=== PATIENT | male | born 1985 | race Caucasian/White ===

== ENCOUNTER 2022-02-28 22:51 | Emergency (ER) | payer OTHER ==
[~2022-02-28] VITALS: Ht 190.5 cm; Wt 100.0 kg
[2022-02-28 23:00] VITALS: BP 138/87
--- NOTE | 2022-02-28 23:25 | PHYS DOC ---
Past History Additional Past Medical Histor: spontaneous pneumothorax Past Surgical History: Other Additional Past Surgical Histo: thoractomy Alcohol Use: None General Adult EDM: Chief Complaint: ABDOMINAL PAIN HPI: HPI: 36-year-old male presents with left lower quadrant abdominal pain. Patient was defecating when he had sudden onset of left lower quadrant abdominal pain which radiates around to his back. He describes it as a sharp pain. He was feeling n ormal prior to this episode. Patient has had a kidney stone in the past. He has been nauseated but no vomiting. Denies fever or chills. Review of Systems: Review of Systems: Constitutional: Denies fever or chills Eyes: Denies change in visual acuity HENT: Denies nasal congestion or sore throat Respiratory: Denies cough or shortness of breath Cardiovascular: Denies chest pain or edema GI: Left lower quadrant abdominal pain, nausea. : Denies dysuria Musculoskeletal: Denies back pain or joint pain Integument: Denies rash Neurologic: Denies headache, focal weakness or sensory changes Endocrine: Denies polyuria or polydipsia Lymphatic: Denies swollen glands Psychiatric: Denies depression or anxiety Current Medications: Current Meds: Current Medications Medications (Trade) Dose Ordered Sig/Shanel Start Time Stop Time Status Last Admin Dose Admin Morphine Sulfate (Morphine 4mg Syringe) 4 mg 1X ONCE 02/28/22 23:30 02/28/22 23:31 02/28/22 23:19 4 MG Ondansetron HCl (Zofran) 4 mg 1X ONCE 02/28/22 23:30 02/28/22 23:31 02/28/22 23:19 4 MG Allergies: Allergies: Allergies Coded Allergies Type Severity Reaction Last Updated Verified No Known Drug Allergies 02/28/22 No Physical Exam: PE: Constitutional: Well developed, well nourished, mild acute distress, non-toxic appearance. [] HENT: Normocephalic, atraumatic, bilateral external ears normal, oropharynx moist, no oral exudates, nose normal. [] Eyes: PERRLA, EOMI, conjunctiva normal, no discharge. [] Neck: Normal range of motion, no tenderness, supple, no stridor. [] Cardiovascular:Heart rate regular rhythm, no murmur [] Lungs & Thorax: Bilateral breath sounds clear to auscultation [] Abdomen: Bowel sounds normal, soft, no tenderness, no masses, no pulsatile masses. [] Skin: Warm, dry, no erythema, no rash. [] Back: No tenderness, left CVA tenderness. [] Extremities: No tenderness, no cyanosis, no clubbing, ROM intact, no edema. [] Neurologic: Alert and oriented X 3, normal motor function, normal sensory function, no focal deficits noted. [] Psychologic: Affect normal, judgement normal, mood normal. [] Current Patient Data: Vital Signs: Vital Signs Date Time Temp Pulse Resp B/P (MAP) Pulse Ox O2 Delivery O2 Flow Rate FiO2 02/28/22 23:00 98.4 88 24 138/87 (104) 100 Room Air EKG: EKG: [] Radiology/Procedures: Radiology/Procedures: [] Impressions: PQRS Compliance Statement: One or more of the following individualized dose reduction techniques were utilized for this examination: 1. Automated exposure control 2. Adjustment of the mA and/or kV according to patient size 3. Use of iterative reconstruction technique CT ABDOMEN+PELVIS WO Clinical Indication: Reason: LLQ pain / Spl. Instructions: / History: Comparison: None. Technique: Helical CT imaging of the abdomen and pelvis is performed without IV or oral contrast. Findings: Lung bases are essentially clear. Cardiac size normal. The liver, gallbladder, spleen, pancreas, adrenal glands, and abdominal aorta are normal. The right kidney is normal. There is no left renal calculus. There is mild left hydroureteronephrosis secondary to a 5 mm calculus in the proximal right ureter, the length of the calculus is 12 mm, coronal image 51. The more distal left ureter is decompressed. The stomach is mildly distended with heterogeneous fluid. Correlate to recent by mouth intake. There is a tiny fat-containing umbilical hernia. There is no small bowel obstruction. The appendix is normal. There is probable peristalsis of the mid transverse colon. Distal colon is decompressed, limiting evaluation. No convincing colon wall thickening is identified. There is no abdominal adenopathy or free fluid. The urinary bladder is normal. Prostate and seminal vesicles are normal. There is no pelvic free fluid. There is no acute bone abnormality. IMPRESSION: There is mild left obstructive uropathy secondary to a 5 x 12 mm calculus in the proximal ureter. Electronically signed by: Taj Adams MD (02/28/2022 11:57 PM) [facility] [place] DICTATED AND SIGNED BY: TAJ ADAMS MD DATE: 02/28/22 3030 CC: ASAD ALFARO DO; PCP,NO ~ Heart Score: C/O Chest Pain: N/A Risk Factors: Risk Factors: DM, Current or recent (<one month) smoker, HTN, HLP, family history of CAD, obesity. Risk Scores: Score 0 - 3: 2.5% MACE over next 6 weeks - Discharge Home Score 4 - 6: 20.3% MACE over next 6 weeks - Admit for Clinical Observation Score 7 - 10: 72.7% MACE over next 6 weeks - Early Invasive Strategies Course & Med Decision Making: Course & Med Decision Making Pertinent Labs and Imaging studies reviewed. (See chart for details) The patient CT of the abdomen and pelvis reveals a proximal 5 x 12 calculus in the proximal ureter. This is unlikely to pass. I have advised that he follow- up with urologist tomorrow. The patient's urinalysis is negative for infection. His labs are unremarkable. I will discharge him with a prescription for [place] and Flomax. He is stable for discharge at this time. [] Dragon Disclaimer: Dragon Disclaimer: This electronic medical record was generated, in whole or in part, using a voice recognition dictation system. Departure Departure: Impression: Primary Impression: Kidney stone Disposition: HOME / SELF CARE / HOMELESS Condition: STABLE Referrals: PCP,FRANCY (PCP) Patient Instructions: Kidney Stones, [id number] Scripts Tamsulosin Hcl (FLOMAX) 0.4 Mg Cap.er.24h 1 CAP PO DAILY for ureterolithiasis for 14 Days, #14 CAP 0 Refills Prov: ASAD ALFARO DO 03/01/22 Hydrocodone/Acetaminophen (Hydrocodone-Acetamin 5-325 mg) 1 Each Tablet 1-2 EACH PO Q6HRS PRN for PAIN, #20 TAB Prov: ASAD ALFARO DO 03/01/22 ASAD ALFARO DO February 28, 2022 23:24
[2022-02-28 23:26] LABS: BASO # 0.1 x10^3/uL (0.0-0.2); BASO % 1 % (0-3); EOS # 0.2 x10^3/uL (0.0-0.7); EOS % 2 % (0-3); HEMATOCRIT 42.6 % (39.0-53.0); HEMOGLOBIN 14.5 g/dL (13.0-17.5); LYMPH # 3.3 x10^3/uL (1.0-4.8); LYMPH % 35 % (24-48); MEAN CORPUSCULAR HEMOGLOBIN 31 pg (25-35); MEAN CORPUSCULAR HGB CONC 34 g/dL (31-37); MEAN CORPUSCULAR VOLUME 91 fL (79-100); MONO # 0.9 x10^3/uL (0.0-1.1); MONO % 10 % (0-9); NEUT % 53 % (31-73); PLATELET COUNT 209 x10^3/uL (140-400); RED BLOOD COUNT 4.68 x10^6/uL (4.30-5.70); RED CELL DISTRIBUTION WIDTH 12.8 % (11.5-14.5); WHITE BLOOD COUNT 9.5 x10^3/uL (4.0-11.0)
[2022-02-28] MEDS ORDERED: ONDANSETRON PF 4 MG/2 ML VIAL. IVP ONE (23:30)
[2022-02-28] MEDS ORDERED: MORPHINE SULFATE 4 MG/ML DISP.SYRIN. IV ONE (23:30)
[2022-02-28 23:48] LABS: ALBUMIN/GLOBULIN RATIO 1.3 (1.0-1.7); CALCIUM 9.4 mg/dL (8.5-10.1); CREATININE 1.2 mg/dL (0.7-1.3); GFR 67.8; TOTAL BILIRUBIN 0.5 mg/dL (0.2-1.0); TOTAL PROTEIN 7.2 g/dL (6.4-8.2)
--- NOTE | 2022-02-28 23:59 | RAD ---
PQRS Compliance Statement: One or more of the following individualized dose reduction techniques were utilized for this examinat ion: 1. Automated exposure control 2. Adjustment of the mA and/or kV according to patient size 3. Use of iterative reconstruction technique CT ABDOMEN+PELVIS WO Clinical Indication: Reason: LLQ pain / Spl. Instructions: / History: Comparison: None. Technique: Helical CT imaging of the abdomen and pelvis is performed without IV or oral contrast. Findings: Lung bases are essentially clear. Cardiac size normal. The liver, gallbladder, spleen, pancreas, adrenal glands, and abdominal aorta are normal. The right kidney is normal. There is no left renal calculus. There is mild left hydroureteronephrosis secondary to a 5 mm calculus in the proximal right ureter, the length of the calculus is 12 mm, kiara nal image 51. The more distal left ureter is decompressed. The stomach is mildly distended with heterogeneous fluid. Correlate to recent by mouth intake. There is a tiny fat-containing umbilical hernia. There is no small bowel obstruction. The appendix is madi l. There is probable peristalsis of the mid transverse colon. Distal colon is decompressed, limiting evaluation. No convincing colon wall thickening is identified. There is no abdominal adenopathy or fr ee fluid. The urinary bladder is normal. Prostate and seminal vesicles are normal. There is no pelvic free flui d. There is no acute bone abnormality. IMPRESSION: There is mild left obstructive uropathy secondary to a 5 x 12 mm calculus in the proximal ureter. Electronically signed by: Taj Griffin MD (02/28/2022 11:57 PM) [facility]
[2022-03-01] MEDS ORDERED: IV NORMAL SALINE 1,000ML 1,000 ML IV ONE (00:30)
[2022-03-01 01:29] LABS: BARBITURATES NEG (NEG); BENZODIAZEPINES NEG (NEG); CANNABINOIDS NEG (NEG); COCAINE NEG (NEG); METHADONE NEG (NEG); OPIATES POS (NEG); PHENCYCLIDINE NEG (NEG)
[2022-03-01 01:31] LABS: AMPHETAMINE/METHAMPHETAMINE NEG (NEG)
[2022-03-01 01:35] LABS: CLARITY,URINE CLEAR; COLOR,URINE YELLOW; GLUCOSE,URINE NEG (NEG)
[2022-03-01 01:36] LABS: BACTERIA,URINE FEW /HPF (0-FEW); NITRITE,URINE NEG (NEG)
[2022-03-01 01:37] LABS: SQUAMOUS EPITHELIAL CELL,UR FEW /LPF
[2022-03-01] MEDS ORDERED: HYDR-2759 PO (01:46)
[2022-03-01] MEDS ORDERED: TAMS0.4C97 PO (01:46)
== END 2022-03-01 01:54 | disposition home or self-care (01) ==
LOC: ER 22:51
DX: N13.2 Hydronephrosis with renal and ureteral calculous obstruction (principal)
CPT/HCPCS: 36415; 74176; 80053; 80307; 81001; 85025; 87086; 96361; 96374; 96375; 99284; J2270; J2405; J7030

== ENCOUNTER 2022-03-05 09:36 | Emergency (ER) | payer OTHER ==
[~2022-03-05] VITALS: Ht 190.5 cm; Wt 98.8 kg
[~2022-03-05 09:36] MED LIST: HYDR-2759 PO; TAMS0.4C97 PO
--- NOTE | 2022-03-05 09:44 | PHYS DOC ---
Past History Additional Past Medical Histor: spontaneous pneumothorax Past Surgical History: Other Additional Past Surgical Histo: thoractomy Alcohol Use: None General Adult HPI: HPI: Patient is a 36-year-old male who is here with left flank pain and nausea and vomiting symptoms. He was recently diagnosed with a very large left ureteral stone. Yesterday he underwent lithotripsy with [facility]. He is taking [place] for pain, but he vomited all of his pain medication and he was not able to keep any fluids or food down since last night and this morning. He is able to urinate. He denies painful urination. He denies chest pain, cough, dyspnea. He denies fevers or chills. He denies bowel habit changes. He has had 1 previous kidney stone on the right side, he was able to pass that without difficulty. He was not prescribed any antiemetics. He contacted the on-call urologist who told him to go to the closest ER. Of note, [facility], and urology in general is not available here at this hospital. Review of Systems: Review of Systems: Constitutional: Denies fever or chills HENT: Denies nasal congestion or sore throat Respiratory: Denies cough or shortness of breath Cardiovascular: Denies chest pain or edema GI: Left flank pain. Denies anterior abdominal pain. Nausea and vomiting. Denies bowel habit changes : Denies dysuria or decreased urine output Musculoskeletal: Left flank pain Integument: Petechial rash to the left flank Neurologic: Denies headache, focal weakness or sensory changes, denies dizziness or syncope Psychiatric: Denies depression or anxiety Allergies: Allergies: Allergies Coded Allergies Type Severity Reaction Last Updated Verified No Known Drug Allergies 02/28/22 No Physical Exam: PE: Constitutional: Well developed, well nourished, no acute distress, non-toxic appearance. [] HENT: Normocephalic, atraumatic, oropharynx is patent and clear. No facial swelling. Mucous members are moist. Subtle cutaneous petechial hemorrhages of the skin just lateral to the left eye. Eyes: PERRL, EOMI, conjunctiva normal, no discharge. No subconjunctival hemorrhage. Neck: Normal range of motion, no tenderness, supple, no stridor. [] Cardiovascular:Heart rate regular rhythm Lungs & Thorax: Bilateral breath sounds clear to auscultation [] Abdomen: Abdomen is soft, nondistended, nontender to palpation. Subtle petechial hemorrhage of the cutaneous tissue of the left flank. Normal bowel sounds. Left CVA tenderness. No palpable pulsatile mass. No audible bruit. Normal bowel sounds. Skin: Warm, dry, no erythema, no jaundice. Back: Left CVA tenderness. No midline tenderness or step-offs. Full range of motion. Extremities: No tenderness, no cyanosis, no clubbing, ROM intact, no edema. [] Neurologic: Alert and oriented X 3, normal motor function, normal sensory function, no focal deficits noted. [] Psychologic: Affect normal, judgement normal, mood normal. He is pleasant and cooperative. EKG: EKG: [] Radiology/Procedures: Radiology/Procedures: IMAGING REPORT Signed PATIENT: MOMO VINCENT AACCOUNT: [id number] : 1985 LOCATION: ER AGE: 36 SEX: M EXAM STATUS: REG ER ORD. PHYSICIAN: CAMI LOMBARDO DO REASON: left flank pain, hx of stone, recent lithotripsy PROCEDURE: CT ABDOMEN PELVIS WO CONTRAST Abdominal and Pelvis CT, Without Contrast: History: Reason: left flank pain, hx of stone, recent lithotripsy / Spl. Instructions: / History: Comparison: February 28, 2022. Procedure: Axial images are obtained of the abdomen and pelvis, without IV or oral contrast. Oral Contrast: No Findings: Evaluation of solid organs is limited without contrast. The 1.3 cm stone which was in the proximal left ureter is now in the distal left ureter. There is mild left hydroureter and hydronephrosis and perinephric edema. There is a tiny 1 mm stone in the mid left ureter and there are 2 tiny stones in the distal left ureter just above the large stone. The appendix is normal. Liver: Normal. Spleen: Normal. Pancreas: Normal. Adrenal Glands: Normal. Kidneys: The right kidney appears normal. There is no free air or free fluid. There is no lymphadenopathy. The urinary bladder appears normal. There is no pericolonic inflammation identified. Impression: Left renal stones and hydronephrosis and hydroureter and perinephric edema. The obstructive uropathy is mildly worse. End impression PQRS Compliance Statement: One or more of the following individualized dose reduction techniques were utilized for this examination: 1. Automated exposure control 2. Adjustment of the mA and/or kV according to patient size 3. Use of iterative reconstruction technique Electronically signed by: Chris Ashley III, MD (03/05/2022 10:47 AM) [facility] DICTATED AND SIGNED BY: CHRIS ASHLEY III, MD DATE: 03/05/22 1041 CC: CAMI LOMBARDO DO; PAULA SALAZAR MD ~ Heart Score: C/O Chest Pain: No Risk Factors: Risk Factors: DM, Current or recent (<one month) smoker, HTN, HLP, family history of CAD, obesity. Risk Scores: Score 0 - 3: 2.5% MACE over next 6 weeks - Discharge Home Score 4 - 6: 20.3% MACE over next 6 weeks - Admit for Clinical Observation Score 7 - 10: 72.7% MACE over next 6 weeks - Early Invasive Strategies Course & Med Decision Making: Course & Med Decision Making Pertinent Labs and Imaging studies reviewed. (See chart for details) The patient is given IV fluids, IV Zofran, IV morphine x3, IV Dilaudid, IV Toradol. He reports continued pain. CT imaging demonstrates 1.3 cm distal ureteral stone with worsening hydronephrosis. Creatinine is increased to 1.7 from baseline of 1.2. There are no urology services here. I [place] [facility] and she agrees that the patient may need to be admitted to the hospital for pain control, will need repeat urology services. I suspect the patient may likely require further intervention, such as stent, but this would definitively will be deferred to urology services. Dr. Abdullahi only performs procedures and rounds at [facility] or [facility], the patient wishes to not travel that far of a distance from his home here in [place], he does agree to go to a [facility], where [facility] [place]. [facility], but I contacted them and they have no available beds. He was ultimately accepted by Dr. Valdovinos at [facility]. He will be transferred to [facility]. He is comfortable with the plan of care. Mariia Disclaimer: Mariia Disclaimer: This electronic medical record was generated, in whole or in part, using a voice recognition dictation system. Departure Departure: Impression: Primary Impression: Left ureteral stone Additional Impressions: Hydronephrosis, left Acute kidney injury Uncontrolled pain Renal colic on left side Disposition: 02 SHORT TERM HOSPITAL ([facility]) Admitting Physician: Other (Dr. Valdovinos at [facility]) Condition: STABLE Referrals: PAULA SALAZAR MD (PCP) CAMI LOMBARDO DO March 05, 2022 09:44
[2022-03-05] MEDS ORDERED: KETOROLAC 15 MG/ML VIAL. IVP ONE (10:00)
[2022-03-05] MEDS ORDERED: ONDANSETRON PF 4 MG/2 ML VIAL. IVP ONE (10:00)
[2022-03-05] MEDS ORDERED: MORPHINE SULFATE 4 MG/ML DISP.SYRIN. IV ONE ×3 (10:00→14:15)
[2022-03-05] MEDS ORDERED: IV NORMAL SALINE 1,000ML 1,000 ML IV ONE (10:00)
[2022-03-05 10:13] LABS: BASO # 0.1 x10^3/uL (0.0-0.2); BASO % 1 % (0-3); EOS % 0 % (0-3); HEMATOCRIT 41.3 % (39.0-53.0); HEMOGLOBIN 14.2 g/dL (13.0-17.5); LYMPH # 0.8 x10^3/uL (1.0-4.8); LYMPH % 8 % (24-48); MEAN CORPUSCULAR HEMOGLOBIN 31 pg (25-35); MEAN CORPUSCULAR HGB CONC 35 g/dL (31-37); MEAN CORPUSCULAR VOLUME 91 fL (79-100); MONO # 0.6 x10^3/uL (0.0-1.1); MONO % 7 % (0-9); NEUT % 85 % (31-73); PLATELET COUNT 179 x10^3/uL (140-400); RED BLOOD COUNT 4.56 x10^6/uL (4.30-5.70); RED CELL DISTRIBUTION WIDTH 12.7 % (11.5-14.5); WHITE BLOOD COUNT 9.5 x10^3/uL (4.0-11.0)
[2022-03-05 10:24] LABS: CALCIUM 9.8 mg/dL (8.5-10.1); CREATININE 1.7 mg/dL (0.7-1.3); GFR 45.3; POTASSIUM 4.1 mmol/L (3.5-5.1)
[2022-03-05 10:30] LABS: ALBUMIN/GLOBULIN RATIO 1.1 (1.0-1.7); TOTAL PROTEIN 7.5 g/dL (6.4-8.2)
--- NOTE | 2022-03-05 10:49 | RAD ---
Abdominal and Pelvis CT, Without Contrast: History: Reason: left flank pain, hx of stone, recent lithotripsy / Spl. Instructions: / History: Comparison: February 28, 2022. Procedure: Axial images are obtained of the abdomen and pelvis, without IV or oral contrast. Oral Contrast: No Findings: Evaluation of solid organs is limited without contrast. The 1.3 cm stone which was in the proximal left ureter is now in the distal left ureter. There is mil d left hydroureter and hydronephrosis and perinephric edema. There is a tiny 1 mm stone in the mid le ft ureter and there are 2 tiny stones in the distal left ureter just above the large stone. The appendix is normal. Liver: Normal. Spleen: Normal. Pancreas: Normal. Adrenal Glands: Normal. Kidneys: The right kidney appears normal. There is no free air or free fluid. There is no lymphadenopathy. The urinary bladder appears normal. There is no pericolonic inflammation identified. Impression: Left renal stones and hydronephrosis and hydroureter and perinephric edema. The obstructive uropathy is mildly worse. End impression PQRS Compliance Statement: One or more of the following individualized dose reduction techniques were utilized for this examinat ion: 1. Automated exposure control 2. Adjustment of the mA and/or kV according to patient size 3. Use of iterative reconstruction technique Electronically signed by: Brendon Bhatt III, MD (03/05/2022 10:47 AM) [facility]
[2022-03-05 11:56] LABS: BACTERIA,URINE 0 /HPF (0-FEW); CLARITY,URINE CLOUDY; COLOR,URINE YELLOW; GLUCOSE,URINE NEG (NEG); NITRITE,URINE NEG (NEG); RBC,URINE >40 /HPF (0-2); UROBILINOGEN,URINE 0.2 mg/dL (0.2 mg/dL)
[2022-03-05] MEDS ORDERED: HYDROmorphone PF 1 MG/ML DISP.SYRIN IVP ONE (13:30)
[2022-03-05 14:28] VITALS: BP 142/88
== END 2022-03-05 14:07 | disposition short-term general hospital (02) ==
LOC: ER 09:36
DX: N13.2 Hydronephrosis with renal and ureteral calculous obstruction (principal); N17.9 Acute kidney failure, unspecified; Z87.442 Personal history of urinary calculi
CPT/HCPCS: 36415; 74176; 80053; 81001; 83690; 85025; 96361; 96374; 96375; 96376; 99285; J1170; J1885; J2270; J2405; J7030